=== PATIENT | male | born 1975 | race Asian ===

== ENCOUNTER 2016-02-28 14:21 | Emergency (ER) | payer OTHER, BC ==
[~2016-02-28] VITALS: Ht 167.6 cm; Wt 68.0 kg
[2016-02-28 15:58] VITALS: BP 138/89
[2016-02-28] MEDS ORDERED: HYDROCODONE/APAP 5/325MG TABLET. PO ONE (16:30)
[2016-02-28] MEDS ORDERED: HYDR-2666 PO (18:13)
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
--- NOTE | 2016-02-29 08:14 | RAD ---
Indication left rib pain. A single view of the chest was obtained as well as targeted films to left ribs. No prior imaging is available. The heart and pulmonary vessels appear normal. The mediastinum appears normal. The lungs are clear. There is no pleural fluid or pneumothorax. Films targeted to left ribs appear normal. IMPRESSION: Normal single view of the chest. Normal plain films left
== END 2016-02-28 18:34 | disposition home or self-care (01) ==
LOC: ER 14:21
DX: R07.81 Pleurodynia (principal); I10 Essential (primary) hypertension; V58.5XXA Driver of pick-up truck or van injured in noncollision transport accident in traffic accident, initial encounter; Y93.I9 Activity, other involving external motion; Y92.410 Unspecified street and highway as the place of occurrence of the external cause; Y99.8 Other external cause status
CPT/HCPCS: 71101; 99284